=== PATIENT | female | born 1960 | race African-American/Black ===

== ENCOUNTER → 2020-05-23 | Outpatient (CLI) | payer MEDICAID | END | disposition home or self-care (01) | LOC: Rad HDHVI 14:35 | PROVIDERS: ATTEND Internal Medicine | DX: Z01.810 Encounter for preprocedural cardiovascular examination (principal); I11.9 Hypertensive heart disease without heart failure; R06.02 Shortness of breath | CPT/HCPCS: 93306 ==

== ENCOUNTER → 2020-05-26 | Outpatient (CLI) | payer MEDICAID ==
[~2020-05-26] VITALS: Ht 152.4 cm; Wt 76.2 kg
== END | disposition home or self-care (01) ==
LOC: Rad HDHVI 08:55
PROVIDERS: ATTEND Internal Medicine Cardiovascular Disease
DX: Z01.810 Encounter for preprocedural cardiovascular examination (principal); I10 Essential (primary) hypertension; E78.00 Pure hypercholesterolemia, unspecified; Z82.49 Family history of ischemic heart disease and other diseases of the circulatory system; Z88.0 Allergy status to penicillin; Z91.010 Allergy to peanuts
CPT/HCPCS: 78452; 93017; 96374; A9500

== ENCOUNTER 2022-02-19 03:30 | Emergency (ER) | payer MEDICAID ==
[~2022-02-19] VITALS: Ht 152.4 cm; Wt 81.6 kg
[2022-02-19 04:05] LABS: Basophils # (auto) 0 10 ^3/uL (0-0.2); Basophils % (auto) 0.3 % (0.0-2.0); Eosinophils # (auto) 0.2 10 ^3/uL (0-0.8); Eosinophils % (auto) 3.1 % (0.0-7.0); Hematocrit 37.8 % (36.0-46.0); Hemoglobin 12.6 g/dL (12.2-16.2); Lymphocytes # (auto) 1.8 10 ^3/uL (0.4-5.4); Lymphocytes % (auto) 35.8 % (10.0-50.0); Mean Corpuscular Hemoglobin 29.9 pg (28.0-32.0); Mean Corpuscular Hgb Conc. 33.4 g/dL (32.0-36.0); Mean Corpuscular Volume 89.6 fL (80.0-100.0); Monocytes # (auto) 0.4 10 ^3/uL (0-1.3); Monocytes % (auto) 7.9 % (0.0-12.0); Neutrophils # (auto) 2.7 10 ^3/uL (1.6-8.6); Neutrophils % (auto) 52.9 % (37.0-80.0); Nucleated Red Blood Cells % 0.1 %; Red Blood Cells 4.22 10^6/uL (4.0-5.20); Red Cell Distribution Width 14.1 % (11.8-14.3); White Blood Cell 5.1 10^3/uL (4.4-10.8)
[2022-02-19 04:19] LABS: Albumin 3.3 g/dL (3.4-5.0); Calcium 8.6 mg/dL (8.5-10.1); Magnesium 2.2 mg/dL (1.6-2.6); Potassium 3.3 mmol/L (3.5-5.1)
[2022-02-19 04:21] LABS: INR 1.1 (0.9-1.15); Partial Thromboplastin Time 24.8 sec (23.6-33.0)
[2022-02-19 04:22] LABS: BUN/Creatinine Ratio 20.2; Bilirubin, Total 0.6 mg/dL (0.2-1.0); Total Protein 7.1 g/dL (6.4-8.2)
[2022-02-19 06:38] LABS: Urine Bacteria FEW /hpf (None Seen); Urine Blood Negative /uL (Negative); Urine Mucus FEW (None Seen); Urine Specific Gravity 1.017 (1.001-1.035); Urine WBC 29 /hpf (0 - 5)
[2022-02-19] MEDS: ASPirin 81 mg TAB PO ONE (07:08)
[2022-02-19] MEDS ORDERED: NITR-87 PO (08:10)
[2022-02-19] MEDS ORDERED: PANT40TA2 PO (08:10)
[2022-02-19] MEDS: MORPHINE SULFATE INJ 2 MG/ml SYRG IV ONE (08:11)
[2022-02-19] MEDS: ONDANSETRON HCL 4 MG/2 ML VIAL IV ONE (08:11)
[2022-02-19] MEDS: DONNATAL 5ml ORAL Elix (BELLADONNA ALK-PHENOBARB) PO ONE (08:15)
[2022-02-19] MEDS: ALUM & MAG HYDROX-SIMETH LIQ(MAALOX) 30 ML PO ONE (09:12)
[2022-02-19] MEDS: POTASSIUM EFFERVESENT TAB 25 MEQ PO ONE (09:12)
[2022-02-19] MEDS: LIDOCAINE VISCOUS 2% 15ML UD PO ONE (09:13)
[2022-02-19 10:34] VITALS: BP 133/85
== END 2022-02-19 10:38 | disposition home or self-care (01) ==
LOC: EDBD 03:30 → ER 03:30
DX: R07.89 Other chest pain (principal); K29.70 Gastritis, unspecified, without bleeding; N39.0 Urinary tract infection, site not specified; R73.9 Hyperglycemia, unspecified; E87.6 Hypokalemia; R94.6 Abnormal results of thyroid function studies
CPT/HCPCS: 36415; 71045; 80053; 81001; 83735; 83880; 84443; 84484; 85025; 85610; 85730; 93005; 96374; 96375; 99285; J2270; J2405